=== PATIENT | female | born 1975 | race Caucasian/White ===

== ENCOUNTER → 2018-02-12 | Outpatient (CLI) | payer OTHER ==
[~2018-02-12] MED LIST: ALBU18HF INH; ALBUTEROL NEB; BUDE10.2 INH; DIAZEPAM PO; FEXO60TA24 PO; METH4TAB2 PO; METH500T97 PO; MOME17SP NAS; MONT10TA9 PO; ONDA4TAB10 PO; OXYC5TAB3 PO; SERT50TA5 PO; kenalog IM
[2018-02-12 15:02] LABS: BASOPHILS # (AUTO) 0.06 x10^3/uL (0-0.1); BASOPHILS % (AUTO) 1 % (0-1); EOSINOPHILS # (AUTO) 0.17 x10^3/uL (0-0.4); EOSINOPHILS % (AUTO) 1 % (1-7); LYMPHOCYTES # (AUTO) 3.48 x10^3/uL (1-3.4); LYMPHOCYTES % (AUTO) 28 % (22-44); MD NO; MEAN CORPUSCULAR HEMOGLOBIN 32.1 pg (27.0-34.8); MEAN CORPUSCULAR HGB CONC 33.8 g/dL (32.4-35.8); MEAN CORPUSCULAR VOLUME 94.8 fL (80-100); MEAN PLATELET VOLUME 7.7 fL (7.4-10.4); MONOCYTES # (AUTO) 0.97 x10^3/uL (0.2-0.8); MONOCYTES % (AUTO) 8 % (2-9); NEUTROPHILS % (AUTO) 62 % (42-75); PLATELET COUNT 449 x10^3/uL (130-400); RED BLOOD COUNT 4.69 x10^6/uL (3.82-5.3); RED CELL DISTRIBUTION WIDTH 13.7 % (9.6-15.2)
[2018-02-12 15:14] LABS: ANION GAP 5 mmol/L (5-15); CALCIUM 8.5 mg/dL (8.5-10.1); CHLORIDE 108 mmol/L (98-107); CREATININE 0.84 mg/dL (0.55-1.02)
== END | disposition home or self-care (01) ==
LOC: STAR 14:10
PROVIDERS: ATTEND Otolaryngology Facial Plastic Surgery
DX: Z01.818 Encounter for other preprocedural examination (principal); J34.2 Deviated nasal septum; J34.3 Hypertrophy of nasal turbinates; G47.33 Obstructive sleep apnea (adult) (pediatric); J35.01 Chronic tonsillitis; J35.1 Hypertrophy of tonsils
CPT/HCPCS: 36415; 71046; 80048; 85025; 93005

== ENCOUNTER 2018-02-19 08:21 | Day surgery (SDC) | payer OTHER ==
[~2018-02-19] VITALS: Ht 162.6 cm; Wt 82.1 kg
[2018-02-19 09:09] VITALS: BP 128/96
[2018-02-19] MEDS ORDERED: LACTATED RINGERS 1,000 ML IV SCH (09:09)
[2018-02-19] MEDS ORDERED: LIDOCAINE-MPF 1%, 5ML ONE (10:05)
[2018-02-19] MEDS ORDERED: MUPIROCIN OINT 2%, 22GM ONE (10:05)
[2018-02-19] MEDS ORDERED: OXYMETAZOLINE NASAL SPRAY 0.05%, 15ML ONE (10:05)
[2018-02-19] MEDS ORDERED: COCAINE TOPICAL SOLN 4%, 4ML ONE (10:05)
[2018-02-19] MEDS ORDERED: EPINEPHRINE 1 MG/ML, 1ML ONE (10:07)
[2018-02-19] MEDS ORDERED: MIDAZOLAM 1 MG/ML, 2ML ONE (10:17)
[2018-02-19] MEDS ORDERED: FENTANYL PF 250 MCG/5ML ONE (10:18)
[2018-02-19] MEDS ORDERED: ONDANSETRON 2MG/ML, 2ML ONE (10:20)
[2018-02-19] MEDS ORDERED: PROPOFOL 10 MG/ML, 20ML ONE (10:20)
[2018-02-19] MEDS ORDERED: CEFAZOLIN 1,000 MG ONE (10:20)
[2018-02-19] MEDS ORDERED: LABETALOL 5MG/ML 40ML VIAL ONE (10:20)
[2018-02-19] MEDS ORDERED: SUCCINYLCHOLINE 20 MG/ML, 10ML ONE (10:20)
[2018-02-19] MEDS ORDERED: DEXAMETHASONE 4 MG/ML, 5ML ONE (10:20)
[2018-02-19] MEDS ORDERED: FENTANYL PF 100 MCG/2ML ONE ×3 (11:43→14:20)
[2018-02-19] MEDS ORDERED: hydrALAzine 20 MG/ML, 1ML IV PRN (12:30)
[2018-02-19] MEDS ORDERED: morphine SULFATE 10 MG/ML, 1ML IV PRN (12:30)
[2018-02-19] MEDS ORDERED: ONDANSETRON 2MG/ML, 2ML IVPush PRN (12:30)
[2018-02-19] MEDS ORDERED: LABETALOL 5MG/ML, 20ML IV PRN (12:30)
[2018-02-19] MEDS ORDERED: FENTANYL PF 100 MCG/2ML IV PRN (12:30)
[2018-02-19] MEDS ORDERED: OXYcodone 5 MG/5 ML ORAL.SOL UDC PO PRN (12:30)
[2018-02-19] MEDS ORDERED: ACETAMINOPHEN 325 MG TABLET PO PRN (12:30)
[2018-02-19] MEDS ORDERED: PROMETHAZINE 25 MG/ML, 1ML ONE (13:26)
[2018-02-19] MEDS ORDERED: ACETAMINOPHEN 650 MG/20.3 ML UDC ONE (13:39)
[2018-02-19] MEDS ORDERED: OXYcodone 5 MG/5 ML ORAL.SOL UDC ONE (13:40)
== END 2018-02-19 15:55 ==
LOC: OUT 08:21
PROVIDERS: ATTEND Otolaryngology Facial Plastic Surgery
DX: J34.2 Deviated nasal septum (principal); J34.3 Hypertrophy of nasal turbinates; N95.0 Postmenopausal bleeding; J35.01 Chronic tonsillitis; S02.2XXA Fracture of nasal bones, initial encounter for closed fracture; X58.XXXA Exposure to other specified factors, initial encounter; Y93.89 Activity, other specified; Y92.89 Other specified places as the place of occurrence of the external cause; Y99.8 Other external cause status
CPT/HCPCS: 30465; 30520; 42826; 87070; 87075; 87102; 87116; 87205; 87206; 88304; J0171; J0330; J0690; J1100; J2250; J2405; J2704; J3010; J7120; 87015

== ENCOUNTER → 2020-09-08 | Outpatient (CLI) | payer OTHER ==
[~2020-09-08] MED LIST changes: +MONT10TA11 PO; -MONT10TA9 PO; +SERT50TA28 PO; -SERT50TA5 PO
== END | disposition home or self-care (01) ==
LOC: CFH 09:27
PROVIDERS: ATTEND Family Medicine
DX: R51.9 Headache, unspecified (principal); H53.149 Visual discomfort, unspecified
CPT/HCPCS: 70450